=== PATIENT | male | born 1930 | race Caucasian/White ===

== ENCOUNTER → 2018-03-03 13:49 | Outpatient (CLI) | payer MEDICARE ==
[2014-11-23 12:36] VITALS: BMI 33.2
[~2018-03-03 13:49] MED LIST: BETAPACE 80 MG80 MG PO; FOLIC ACID1 MG PO; METHOTREXATE2.5 MG PO
== END | disposition home or self-care (01) ==
LOC: D.RAD 13:49
DX: J34.89 Other specified disorders of nose and nasal sinuses (principal)

== ENCOUNTER → 2020-02-28 10:47 | Outpatient (CLI) | payer MEDICARE ==
[2014-11-23 12:36] VITALS: BMI 33.2
== END | disposition home or self-care (01) ==
LOC: D.RAD 10:47
PROVIDERS: ATTEND Family Medicine
DX: M54.31 Sciatica, right side (principal)